=== PATIENT | male | born 1945 | race Caucasian/White ===

== ENCOUNTER 2019-07-28 10:43 | Emergency (ER) | payer MEDICARE, OTHER ==
[~2019-07-28] VITALS: Ht 190.5 cm; Wt 116.6 kg
[2019-07-28 10:55] LABS: ABSOLUTE BASOPHILS 0.1 thou/uL (0.0-0.2); ABSOLUTE EOSINOPHILS 0.7 thou/uL (0.0-0.7); ABSOLUTE LYMPHOCYTES 3.7 thou/uL (0.8-5.3); ABSOLUTE MONOCYTES 1.4 thou/uL (0.0-1.2); ABSOLUTE NEUTROPHILS 7.1 thou/uL (1.6-8.1); BASOPHILS 0.7 %; EOSINOPHILS 5.7 %; HEMATOCRIT 43.2 % (42.0-52.0); LYMPHOCYTES 28.6 %; MCH 27.2 pg (26.0-34.0); MCHC 32.5 g/dL (28.0-37.0); MCV 83.9 fL (80.0-100.0); MONOCYTES 10.6 %; MPV 7.9 fl. (7.2-11.1); NUCLEATED RBCS 0 /100WBC; PLATELET COUNT* 343 thou/uL (150-400); POLYS 54.4 %; RBC 5.15 mil/uL (4.50-6.00); RDW-CV 16.6 % (10.5-14.5); WBC 13.1 thou/uL (4.0-11.0)
[2019-07-28 11:05] LABS: CALCIUM 9.5 mg/dL (8.5-10.1); CREATININE 1.2 mg/dL (0.6-1.3); POTASSIUM 4.4 mmol/L (3.5-5.1)
[2019-07-28 11:08] LABS: APTT 23.6 Seconds (25.0-31.3); PROTIME 9.9 Seconds (9.20-11.50)
[2019-07-28 11:09] LABS: ALBUMIN 3.5 g/dL (3.4-5.0); TOTAL BILIRUBIN 0.3 mg/dL (<0.1-1.0); TOTAL PROTEIN 7.8 g/dL (6.4-8.2)
[2019-07-28 13:59] VITALS: BP 117/64
--- NOTE | 2019-07-28 15:27 | EKG ---
[place] [address] ELECTROCARDIOGRAM REPORT Name: AKIL MCKINNON Room: [facility]#: [id number] Admission: 07/28/19 Attend Phys: Discharge: 07/28/19 Date of : 43 Report #: [id number] THIS REPORT FOR: //name// [facility] ED Test Date: 2019-07-28 Test Time: 10:48:32 Pat Name: AKIL MCKINNON Department: Room: Gender: M [employer] Operator: : [id number] Requested By: Royce Rodriguez Order Number: [id number] MD: Onesimo Cosby Measurements Intervals [place] Rate: 76 P: 42 DE: 187 QRS: 60 QRSD: 80 T: 64 QT: 386 QTc: 435 Interpretive Statements Sinus rhythm Probable left atrial enlargement Low voltage, precordial leads Baseline wander in lead(s) III No previous ECG available for comparison Electronically Signed On 07-28-2019 15:27:34 [employer] by Onesimo Cosby [email or web address] <ELECTRONICALLY SIGNED> By: Onesimo Cosby MD, [facility] 07/28/19 1527 1048 1048 Onesimo Cosby MD, FACC /EPI
== END 2019-07-28 14:06 | disposition home or self-care (01) ==
LOC: M.ERS 10:43
PROVIDERS: Family Medicine
DX: R55 Syncope and collapse (principal); E11.9 Type 2 diabetes mellitus without complications; I10 Essential (primary) hypertension; E78.00 Pure hypercholesterolemia, unspecified